=== PATIENT | female | born 1970 | race Caucasian/White ===

== ENCOUNTER 2024-06-12 12:31 | Inpatient (IN) | payer BC, OTHER ==
[~2024-06-12] VITALS: Ht 170.2 cm; Wt 84.6 kg
[2024-06-12 14:00] VITALS: BP 107/55; TEMP 99.8; O2SAT 97
[2024-06-12] MEDS ORDERED: Z GUARD REMEDY 4 OZ OINT TP PRN (14:00)
[2024-06-12] MEDS ORDERED: MAG HYDROX/AL HYDROX/SIMETH 30 ML UDC PO PRN (14:00)
[2024-06-12] MEDS ORDERED: ZOLPIDEM TARTRATE 5 MG TABLET PO PRN (14:00)
[2024-06-12] MEDS ORDERED: MAGNESIUM HYDROXIDE 30 ML UDC PO PRN (14:00)
[2024-06-12] MEDS: IV D5/0.45 NACL 1,000 ML IV PRN (14:45)
[2024-06-12 15:45] VITALS: TEMP 100
[2024-06-12] MEDS ORDERED: LOSA50TA39 PO (15:45)
[2024-06-12 15:49] LABS: BASOPHILS # (AUTO) 0.1 K/uL (0.0-0.2); BASOPHILS % (AUTO) 0.5 % (0.0-2.0); EOSINOPHILS % (AUTO) 0.3 % (0.0-6.0); HEMATOCRIT 36 % (33-45); HEMOGLOBIN 12.4 g/dL (11.5-14.8); LYMPHOCYTES # (AUTO) 1.3 K/uL (0.8-4.8); LYMPHOCYTES % (AUTO) 9.4 % (20.0-44.0); MEAN CORPUSCULAR HEMOGLOBIN 32 PG (26.0-33.0); MEAN CORPUSCULAR HGB CONC 34 g/dl (31.0-36.0); MEAN CORPUSCULAR VOLUME 93 fL (82-100); MONOCYTES # (AUTO) 1.2 K/uL (0.1-1.30); MONOCYTES % (AUTO) 8.7 % (2.0-12.0); NEUTROPHILS # (AUTO) 11.2 K/uL (1.8-8.9); NEUTROPHILS % (AUTO) 81.1 % (43.0-81.0); PLATELET COUNT (AUTO) 292 K/uL (150-450); RED BLOOD CELL COUNT(AUTO) 3.91 MIL/uL (4.0-5.2); RED CELL DISTRIBUTION WIDTH 12.9 % (11.5-15.0); WHITE BLOOD COUNT (AUTO) 13.8 K/uL (4.3-11.0)
[2024-06-12] MEDS: ACETAMINOPHEN 325 MG TABLET PO PRN (15:55)
[2024-06-12 16:00] VITALS: BP 106/62; TEMP 100; O2SAT 96
[2024-06-12 16:04] LABS: ALBUMIN 3.3 g/dL (3.4-5.0); BILIRUBIN,TOTAL 0.7 mg/dL (0.2-1.0); CALCIUM, SERUM 8.8 mg/dL (8.5-10.1); CREATININE 0.8 mg/dL (0.6-1.3); POTASSIUM 3.9 mmol/L (3.5-5.1); TOTAL PROTEIN, SERUM 7.9 g/dL (6.4-8.2)
[2024-06-12 16:11] LABS: INR 1.07 (0.91-1.10); PARTIAL THROMBOPLASTIN TIME 30.9 SEC (24.3-34.3); PROTHROMBIN TIME 11.3 SECS (9.2-11.1)
[2024-06-12] MEDS: PIPERACILLIN /TAZOBACTAM 3.375 G in IV D5W 50 ML IV SCH (17:36)
[2024-06-12 20:00] VITALS: BP 104/59; TEMP 97.9; O2SAT 92
[2024-06-13 06:36] LABS: BASOPHILS % (AUTO) 0.2 % (0.0-2.0); EOSINOPHILS # (AUTO) 0.1 K/uL (0.0-0.7); EOSINOPHILS % (AUTO) 0.6 % (0.0-6.0); HEMATOCRIT 33 % (33-45); LYMPHOCYTES # (AUTO) 1.9 K/uL (0.8-4.8); LYMPHOCYTES % (AUTO) 14.5 % (20.0-44.0); MEAN CORPUSCULAR HEMOGLOBIN 31 PG (26.0-33.0); MEAN CORPUSCULAR HGB CONC 34 g/dl (31.0-36.0); MEAN CORPUSCULAR VOLUME 93 fL (82-100); MONOCYTES # (AUTO) 1.2 K/uL (0.1-1.30); MONOCYTES % (AUTO) 9.1 % (2.0-12.0); NEUTROPHILS # (AUTO) 9.8 K/uL (1.8-8.9); NEUTROPHILS % (AUTO) 75.6 % (43.0-81.0); PLATELET COUNT (AUTO) 248 K/uL (150-450); RED BLOOD CELL COUNT(AUTO) 3.51 MIL/uL (4.0-5.2); RED CELL DISTRIBUTION WIDTH 12.8 % (11.5-15.0)
[2024-06-13 07:07] LABS: CALCIUM, SERUM 8.8 mg/dL (8.5-10.1); CREATININE 0.7 mg/dL (0.6-1.3); MAGNESIUM 2.2 mg/dL (1.8-2.4); PHOSPHORUS 2.2 mg/dL (2.5-4.9); POTASSIUM 3.4 mmol/L (3.5-5.1)
[2024-06-13 07:30] VITALS: BP 106/61; TEMP 98.2; O2SAT 90
[2024-06-13] MEDS: PANTOPRAZOLE 40 MG VIAL IV SCH (08:10)
[2024-06-13] MEDS: POTASSIUM CL. PREMIX PERIPHER. 50 ML IV SCH (09:41)
[2024-06-13 16:00] VITALS: BP 94/52; TEMP 98.8; O2SAT 93
[2024-06-13] MEDS: Sodium Phosphate 15 MMOL in IV NS 0.9% 245 ML IV SCH (16:15)
[2024-06-13 20:00] VITALS: BP_SYST 101; BP_SYST 104; BP_DIAS 56; TEMP 99.1; O2SAT 92
[2024-06-14 07:38] LABS: BASOPHILS # (AUTO) 0.1 K/uL (0.0-0.2); BASOPHILS % (AUTO) 0.6 % (0.0-2.0); EOSINOPHILS # (AUTO) 0.2 K/uL (0.0-0.7); EOSINOPHILS % (AUTO) 2.1 % (0.0-6.0); HEMATOCRIT 32 % (33-45); HEMOGLOBIN 10.7 g/dL (11.5-14.8); LYMPHOCYTES # (AUTO) 1.9 K/uL (0.8-4.8); LYMPHOCYTES % (AUTO) 20.3 % (20.0-44.0); MEAN CORPUSCULAR HEMOGLOBIN 31 PG (26.0-33.0); MEAN CORPUSCULAR HGB CONC 33 g/dl (31.0-36.0); MEAN CORPUSCULAR VOLUME 94 fL (82-100); MONOCYTES # (AUTO) 0.8 K/uL (0.1-1.30); MONOCYTES % (AUTO) 8.6 % (2.0-12.0); NEUTROPHILS # (AUTO) 6.3 K/uL (1.8-8.9); NEUTROPHILS % (AUTO) 68.4 % (43.0-81.0); PLATELET COUNT (AUTO) 266 K/uL (150-450); RED BLOOD CELL COUNT(AUTO) 3.42 MIL/uL (4.0-5.2); RED CELL DISTRIBUTION WIDTH 12.5 % (11.5-15.0); WHITE BLOOD COUNT (AUTO) 9.1 K/uL (4.3-11.0)
[2024-06-14 07:45] LABS: CALCIUM, SERUM 8.4 mg/dL (8.5-10.1); CREATININE 0.6 mg/dL (0.6-1.3); MAGNESIUM 2.2 mg/dL (1.8-2.4); PHOSPHORUS 2.8 mg/dL (2.5-4.9); POTASSIUM 3.5 mmol/L (3.5-5.1)
[2024-06-14 08:00] VITALS: BP 103/66; TEMP 98.1; O2SAT 94
[2024-06-14] MEDS: PANTOPRAZOLE 40 MG TABLET.DR PO SCH (09:00)
[2024-06-14] MEDS ORDERED: BUPIVACAINE 0.5 % PF 150 MG/30 ML VIAL ONE (10:37)
[2024-06-14] MEDS ORDERED: LIDOCAINE 1%-EPI 1:100,000 20 ML VIAL ONE (10:37)
[2024-06-14] MEDS ORDERED: INDOCYANINE GREEN 25 MG/VIAL VIAL IJ ONE (11:36)
[2024-06-14] MEDS ORDERED: MIDAZOLAM HCL 2 MG/2ML VIAL ONE (15:23)
[2024-06-14] MEDS ORDERED: FENTANYL PF 250MCG/5ML AMPUL ONE (15:24)
[2024-06-14] MEDS ORDERED: SUCCINYLCHOLINE CHLORIDE 20 MG/ML VIAL ONE (15:44)
[2024-06-14] MEDS ORDERED: GLYCOPYRROLATE 0.2 MG/ML VIAL ONE (15:45)
[2024-06-14] MEDS ORDERED: ROCURONIUM BROMIDE 50 MG/5 ML ONE (15:46)
[2024-06-14] MEDS ORDERED: CELLULOSE,OXIDIZED 1 EA PACK MC ONE (17:02)
[2024-06-14] MEDS ORDERED: FENTANYL PF 100MCG/2ML AMPUL ONE (18:30)
[2024-06-14 18:46] VITALS: BP 115/65; TEMP 97.7; O2SAT 93
[2024-06-14] MEDS: ONDANSETRON HCL/PF 4 MG/2 ML VIAL IVP PRN (19:26)
[2024-06-14 20:00] VITALS: BP 118/75; TEMP 98.4; O2SAT 96
[2024-06-15] MEDS: MORPHINE SULFATE INJ 4 MG/ML DISP.SYRIN IV PRN (03:32)
[2024-06-15 08:30] VITALS: BP 102/68; TEMP 97.5; O2SAT 94
[2024-06-15] MEDS: PIPERACILLIN /TAZOBACTAM 3.375 G in IV D5W 100 ML IV SCH (12:04)
[2024-06-15 14:00] LABS: ALBUMIN 2.4 g/dL (3.4-5.0); BILIRUBIN,DIRECT 0.1 mg/dL (0.0-0.2); BILIRUBIN,TOTAL 0.2 mg/dL (0.2-1.0); TOTAL PROTEIN, SERUM 6.8 g/dL (6.4-8.2)
[2024-06-15 16:00] VITALS: BP 110/65; TEMP 97.6; O2SAT 94
[2024-06-15 20:00] VITALS: BP 91/55; TEMP 98.4; O2SAT 91
[2024-06-15 20:30] VITALS: BP 109/67; O2SAT 96
[2024-06-16] MEDS: HYDROCODONE/APAP 5/325MG TABLET PO PRN (02:27)
[2024-06-16 05:20] VITALS: O2SAT 97
[2024-06-16 05:46] LABS: BASOPHILS # (AUTO) 0.1 K/uL (0.0-0.2); BASOPHILS % (AUTO) 0.9 % (0.0-2.0); EOSINOPHILS # (AUTO) 0.1 K/uL (0.0-0.7); EOSINOPHILS % (AUTO) 1.9 % (0.0-6.0); HEMATOCRIT 28 % (33-45); HEMOGLOBIN 9.5 g/dL (11.5-14.8); LYMPHOCYTES # (AUTO) 2.8 K/uL (0.8-4.8); LYMPHOCYTES % (AUTO) 36.5 % (20.0-44.0); MEAN CORPUSCULAR HEMOGLOBIN 32 PG (26.0-33.0); MEAN CORPUSCULAR HGB CONC 34 g/dl (31.0-36.0); MEAN CORPUSCULAR VOLUME 93 fL (82-100); MONOCYTES # (AUTO) 0.6 K/uL (0.1-1.30); MONOCYTES % (AUTO) 7.4 % (2.0-12.0); NEUTROPHILS # (AUTO) 4.1 K/uL (1.8-8.9); NEUTROPHILS % (AUTO) 53.3 % (43.0-81.0); PLATELET COUNT (AUTO) 291 K/uL (150-450); RED BLOOD CELL COUNT(AUTO) 2.98 MIL/uL (4.0-5.2); RED CELL DISTRIBUTION WIDTH 12.7 % (11.5-15.0); WHITE BLOOD COUNT (AUTO) 7.7 K/uL (4.3-11.0)
[2024-06-16 05:58] LABS: CALCIUM, SERUM 8.9 mg/dL (8.5-10.1); CREATININE 0.6 mg/dL (0.6-1.3); PHOSPHORUS 3.7 mg/dL (2.5-4.9); POTASSIUM 3.4 mmol/L (3.5-5.1)
[2024-06-16 08:00] VITALS: BP 104/65; TEMP 97.7; O2SAT 90
[2024-06-16] MEDS: POTASSIUM CHLORIDE 20 MEQ TAB.PRT.SR PO SCH (10:07)
[2024-06-16] MEDS ORDERED: METR500T PO (12:02)
[2024-06-16] MEDS ORDERED: CIPR500S2 PO (12:02)
== END 2024-06-16 16:15 | disposition home or self-care (01) | DRG 418 ==
LOC: MED 13:21
PROVIDERS: ADMIT Student in an Organized Health Care Education/Training Program; ATTEND Student in an Organized Health Care Education/Training Program
PROC: 0FT44ZZ Resection of Gallbladder, Percutaneous Endoscopic Approach (ICD-10-PCS; principal; 2024-06-14)
PROC: 0W3P4ZZ Control Bleeding in Gastrointestinal Tract, Percutaneous Endoscopic Approach (ICD-10-PCS; 2024-06-14)
PROC: BF5C2Z0 Other Imaging of Hepatobiliary System, All using Fluorescing Agent, Intraoperative (ICD-10-PCS; 2024-06-14)
PROC: 0FB04ZX Excision of Liver, Percutaneous Endoscopic Approach, Diagnostic (ICD-10-PCS; 2024-06-14)
DX: K81.0 Acute cholecystitis (principal); E44.1 Mild protein-calorie malnutrition; E87.1 Hypo-osmolality and hyponatremia; K29.70 Gastritis, unspecified, without bleeding; E83.39 Other disorders of phosphorus metabolism; E87.6 Hypokalemia; D64.9 Anemia, unspecified; Z68.29 Body mass index [BMI] 29.0-29.9, adult; D72.829 Elevated white blood cell count, unspecified; K83.8 Other specified diseases of biliary tract; K76.0 Fatty (change of) liver, not elsewhere classified
CPT/HCPCS: 36415; 71045-TC; 78226; 80048-TC; 80053-TC; 80076-TC; 83735-TC; 84100-TC; 84702-TC; 85025-TC; 85730-TC; 86850-TC; 87081-TC; 94761-TC; 94799-TC; A4223; A9537; A9563; G0378; J0330; J0690; J1100; J1885; J2250; J2270; J2405; J2470; J2543; J2704; J2765; J3010; J3480; J3490; J7030; J7050; J7060; J7070; Q9968